=== PATIENT | male | born 2000 | race Caucasian/White ===

== ENCOUNTER 2019-06-09 20:38 | Emergency (ER) | payer SELFPAY, OTHER, MEDICAID ==
[2019-06-09] MEDS: DIPHTH/TET/ACEL PERTUSS (ADULT) 0.5 ML VIAL IM* (21:38)
[2019-06-09] MEDS: HYDROCODONE/APAP (10/325) TAB PO (21:43)
[2019-06-09] MEDS: CLINDAMYCIN 300 MG INJ IM (22:05)
[2019-06-09] MEDS: BACITRACIN/POLYMYXIN 28.35 GM OINT TOP ×2 (22:11→22:12)
== END 2019-06-09 22:30 | disposition home or self-care (01) ==
LOC: FTE 20:38
DX: S91.301A Unspecified open wound, right foot, initial encounter (principal); F17.210 Nicotine dependence, cigarettes, uncomplicated; L08.9 Local infection of the skin and subcutaneous tissue, unspecified; X58.XXXA Exposure to other specified factors, initial encounter; Y92.9 Unspecified place or not applicable; Z23 Encounter for immunization
CPT/HCPCS: 82962; 87070; 90471; 90715; 96372; 99284-25